=== PATIENT | female | born 1945 | race Caucasian/White ===

== ENCOUNTER 2022-03-28 14:25 | Inpatient (IN) | payer OTHER, MEDICARE ==
[~2022-03-28] VITALS: Ht 157.5 cm; Wt 65.3 kg
[2022-03-28 14:58] VITALS: BP_SYST 166
--- NOTE | 2022-03-28 14:58 | NUR ---
Patient to ER bed 3 to gown for evaluation. Side rails up. Report given to Chacha SANCHEZ.
--- NOTE | 2022-03-28 15:20 | NUR ---
ER at bedside examining patient.
[2022-03-28] MEDS ORDERED: MORPHINE 2 MG/ML INJ. SYRINGE IVP ONE (15:30)
[2022-03-28] MEDS ORDERED: NACL 0.9% 500 ML IV ONE (15:30)
[2022-03-28 16:20] LABS: BILIRUBIN,URINE NEGATIVE (NEGATIVE); BLOOD, URINE NEGATIVE (NEGATIVE); CLARITY/URINE CLEAR (CLEAR); COLOR,URINE YELLOW (YELLOW); GLUCOSE,URINE 3+ (NEGATIVE); KETONES,URINE NEGATIVE (NEGATIVE); LEUKOCYTE ESTERASE ,URINE NEGATIVE (NEGATIVE); NITRITE, URINE NEGATIVE (NEGATIVE); PH,URINE 5.5 (5.0-8.0); PROTEIN URINE NEGATIVE (NEGATIVE); UROBILINOGEN,URINE 0.2 (0.2-1.0)
[2022-03-28 16:24] LABS: BASOPHILS % (AUTO) 0.2 % (0.0-2.0); EOSINOPHILS # (AUTO) 0.1 K/uL (0.0-0.4); EOSINOPHILS % (AUTO) 1.2 % (0.0-4.0); HEMOGLOBIN 12.2 g/dL (12.0-16.0); LYMPHOCYTES % (AUTO) 16.8 % (20.5-51.5); MEAN CORPUSCULAR HEMOGLOBIN 27 pg (27-31); MEAN CORPUSCULAR HGB CONC 33 % (32-36); MEAN CORPUSCULAR VOLUME 82 fL (79.0-98.0); MONOCYTES # (AUTO) 1.4 K/uL (0.0-1.0); MONOCYTES % (AUTO) 12.3 % (1.7-9.3); NEUTROPHILS # (AUTO) 8.1 K/uL (1.8-7.7); NEUTROPHILS % (AUTO) 69.5 % (40.0-70.0); PLATELET COUNT (AUTO) 282 K/uL (130-430); RED BLOOD CELL COUNT(AUTO) 4.51 MIL/uL (4.2-6.2); RED CELL DISTRIBUTION WIDTH 13.7 % (9.0-15.0); WHITE BLOOD COUNT (AUTO) 11.7 K/uL (4.8-10.8)
[2022-03-28 16:29] LABS: ANION GAP 7 (5-15); CALCIUM 8.2 mg/dL (8.4-11.0); CHLORIDE 94 mmol/L (98-107); GLUCOSE 185 mg/dL (70-99); POTASSIUM 4.5 mmol/L (3.5-5.1); SODIUM SERUM 125 mmol/L (136-145); UREA NITROGEN, BLOOD 25 mg/dL (8-21)
[2022-03-28 16:38] LABS: ALANINE AMINOTRANSFERASE 30 U/L (12-78); ASPARTATE AMINOTRANSFERASE 24 U/L (10-37); LIPASE 81 U/L (73-393); TOTAL BILIRUBIN 0.3 mg/dL (0.0-1.0)
[2022-03-28] MEDS ORDERED: NACL 0.9% 1,000 ML IV ONE (18:00)
[2022-03-28] MEDS ORDERED: AZITHROMYCIN 500 MG in NS 250 ML IV ONE (18:15)
--- NOTE | 2022-03-28 18:27 | NUR ---
Admit bed requested Patient will be admitted to care of . Admitted to TELEMETRY unit. Diagnosis ATYPICAL PNEUMONIA AND HYPERNATREMIA Inpatient (Yes or No) YES Observation (Yes or No) NO Orientation concerns or request close to nursing station (Yes or No) NO Covid Status PENDING On vent or bipap NO Isolation requirements NO Needs a sitter NO From Home (Yes or if No enter name of facility) HOME Requires Dialysis (Yes or No) NO Med Rec Completed (Yes of No) NO
[2022-03-28] MEDS: NACL 0.9% 1,000 ML IV SCH (19:13)
[2022-03-28] MEDS ORDERED: AZITHROMYCIN 500 MG/VIAL (ZITHROMAX) IV ONE (19:14)
--- NOTE | 2022-03-28 19:28 | NUR ---
Care transferred over to Malu SANCHEZ at this time. Pt in no acute distress Aox4 GCS 15.
--- NOTE | 2022-03-28 19:35 | NUR ---
Note undone in EDM - 03/28/22 at 2128 by [email or web address] Pt aaox3, denies sob/cp/any pain, (-)facial droop/arm drift/slurred speech, resp non labored, on cm-sr 90-94, SatO2-98%. +roney to small lac to scalp, no active bleeding noted. Pt offers no complaints at present. kept comfortable. admitted for observation, awaiting for bed availability.
--- NOTE | 2022-03-28 19:38 | NUR ---
Pt aaox3, denies sob/cp/any pain at present, on cm-sr 80-90. Resp easy and non labored. IV heplock G20 to left FA connected to NS 1L and azithromycin IVPB infusing well. kept comfortable, admitted for observation, awaiting for bed availability.
--- NOTE | 2022-03-28 19:52 | NUR ---
Swabbed for COVID. Sent to lab.
--- NOTE | 2022-03-28 21:18 | NUR ---
Joy ortiz in [facility], [place] - 03/28/22 at 2128 by [email or web address] Pt in no acute distress, transported to floor w/ monitor / RN, endorsed to Eh SANCHEZ
--- NOTE | 2022-03-28 21:30 | NUR ---
A 76 years old female patient arrived inpatient from ED. Full Code. Under the care of attending Doctor Kasi Lizarraga. Chief compliant chest pain and right later lower back pain. Diagnosed with pneumonia and hyponatremia. History of Asthma, DM, COPD, and cholecystectomy (year 1997). No known allergy. Alert and Oriented x4. able to walk independently. non-smoker, skin intact. Peripheral IV guage 20 on the left forearm. Diabetic diet. List of home medication shown by the patient.
--- NOTE | 2022-03-28 21:35 | NUR ---
Pt OOB to bathrooom and back to bed, ambulatory w/ steady gait.
--- NOTE | 2022-03-28 21:50 | NUR ---
Pt in no acute distress, transported to telemetry floor w/ monitor / RN; endorsed to Edgar RN
[2022-03-28 22:33] VITALS: BP_SYST 145
--- NOTE | 2022-03-28 22:52 | NUR ---
patient stated the home meds they take: Jardiance 10mg, once a day AM Novolog PRN (sliding scale) Levemir 28u at night amlodipine 5-20mg once a day AM lexapro 10mg, once a day AM VENDOLIN HFA inhaler PRN brimonidine tartrate 20% twice a day (once in AM one in PM) both eyes latanoprost 0.005% at bedtime both eyes timolol maleate 0.5% at night both eyes
--- NOTE | 2022-03-28 23:05 | NUR ---
Called Dr Lizarraga mobile phone for medication reconciliation and admission report. No answer and directed me to a voicemail however the Doctor's voicemail is full. Will endorse to morning shift.
[2022-03-29 04:00] VITALS: BP_SYST 140
--- NOTE | 2022-03-29 04:15 | NUR ---
Medication Reconciliation Patient seen by Dr Car, reviewed home medications list. Doctor entered the medication orders
--- NOTE | 2022-03-29 04:24 | NUR ---
Consultation Paged Reason for consult: pneumonia Was consult called: Y Person who was notified: Karolina Consulting Physician: Dr. Melendez Ordering Physician: Dr. Lizarraga
--- NOTE | 2022-03-29 04:50 | NUR ---
Consultation Paged Reason for consult: pneumonia Was consult called: Y Person who was notified: Kendrick Wilson saw the pt. Consulting Physician: Kendrick Wilson Ordering Physician: Dr. Lizarraga
[2022-03-29 07:05] LABS: BASOPHILS % (AUTO) 0.3 % (0.0-2.0); EOSINOPHILS % (AUTO) 0.3 % (0.0-4.0); HEMATOCRIT 34.2 % (36-48); HEMOGLOBIN 11.2 g/dL (12.0-16.0); LYMPHOCYTES # (AUTO) 1.3 K/uL (1.0-5.5); LYMPHOCYTES % (AUTO) 13.3 % (20.5-51.5); MEAN CORPUSCULAR HEMOGLOBIN 27 pg (27-31); MEAN CORPUSCULAR HGB CONC 33 % (32-36); MEAN CORPUSCULAR VOLUME 82 fL (79.0-98.0); MONOCYTES # (AUTO) 0.8 K/uL (0.0-1.0); MONOCYTES % (AUTO) 8.5 % (1.7-9.3); NEUTROPHILS # (AUTO) 7.4 K/uL (1.8-7.7); NEUTROPHILS % (AUTO) 77.6 % (40.0-70.0); PLATELET COUNT (AUTO) 271 K/uL (130-430); RED BLOOD CELL COUNT(AUTO) 4.17 MIL/uL (4.2-6.2); RED CELL DISTRIBUTION WIDTH 14.1 % (9.0-15.0); WHITE BLOOD COUNT (AUTO) 9.5 K/uL (4.8-10.8)
--- NOTE | 2022-03-29 07:15 | NUR ---
OPENING NOTE Patient resting in bed with eyes closed. IV is patent and running prescribed fluids. No sign of distress or pain at this time. All needs met and safety checks made. Will continue to monitor.
[2022-03-29 07:42] LABS: ANION GAP 6 (5-15); CALCIUM 7.9 mg/dL (8.4-11.0); CHLORIDE 102 mmol/L (98-107); CREATININE 0.77 mg/dL (0.55-1.30); GLUCOSE 150 mg/dL (70-99); POTASSIUM 4.6 mmol/L (3.5-5.1); SODIUM SERUM 130 mmol/L (136-145); UREA NITROGEN, BLOOD 15 mg/dL (8-21)
[2022-03-29 07:52] LABS: ALANINE AMINOTRANSFERASE 22 U/L (12-78); ALBUMIN 2.5 g/dL (3.4-4.8); ASPARTATE AMINOTRANSFERASE 16 U/L (10-37); TOTAL BILIRUBIN 0.2 mg/dL (0.0-1.0)
[2022-03-29 08:00] VITALS: BP_SYST 160
[2022-03-29] MEDS: CITALOPRAM HYDROBROMIDE 20 MG TABLET PO SCH (08:19)
[2022-03-29] MEDS: lisinopriL 5 MG TABLET PO SCH (08:19)
[2022-03-29] MEDS: amLODIPine BESYLATE 5 MG TABLET PO SCH (08:20)
[2022-03-29] MEDS: cefTRIAXone 1 GM in D5W 50 ML IV SCH (08:55)
[2022-03-29] MEDS: AZITHROMYCIN 500 MG in NS 250 ML IV SCH (08:56)
[2022-03-29] MEDS ORDERED: ESCITALOPRAM OXALATE 10 MG TABLET PO SCH (09:00)
--- NOTE | 2022-03-29 10:45 | NUR ---
SPOKE TO DR LIZARRAGA Spoke to Dr Lizarraga, informed him of the patient's pain 5/10 on her back and radiating to her stomach. New orders received.
[2022-03-29] MEDS: ACETAMINOPHEN 500 MG TABLET PO PRN ×2 (10:57→19:53)
[2022-03-29] MEDS: BRIMONIDINE TARTRATE 0.2% 5 mL EYE DROPS OP SCH ×2 (10:57→20:32)
[2022-03-29 12:00] VITALS: BP_SYST 126; BP_SYST 150
[2022-03-29] MEDS ORDERED: TIMOLOL MALEATE 0.5% OPHTHALMIC DROPS 5 ML OP ONE (12:00)
--- NOTE | 2022-03-29 12:30 | NUR ---
ROUNDS Patient sitting up in bed eating lunch. AxO x4, able to ambulate to the restroom with steady gait. Patient complains of pain on the right flank radiating to her back. Patient received tylenol and states that it helped but did not take away the pain completely. All needs met at this time and safety checks made. Will continue to monitor.
--- NOTE | 2022-03-29 16:00 | NUR ---
ROUNDS Patient in bed sleeping, no sign of pain or distress. IV is patent and running prescribed fluids. All needs met at this time, and safety checks made. Will continue to monitor.
[2022-03-29 16:49] VITALS: BP_SYST 152
[2022-03-29] MEDS: NACL 0.9% 1,000 ML IV SCH (18:10)
--- NOTE | 2022-03-29 18:37 | NUR ---
CLOSING NOTE Patient sitting up in bed eating breakfast. No sign of respiratory distress and states that her pain is manageable at this time. IV is clean, dry, intact, and patent running prescribed fluids. All needs met at this time and safety checks made. Will endorse to mold shifter nurse.
[2022-03-29 19:30] VITALS: BP_SYST 157
--- NOTE | 2022-03-29 19:30 | NUR ---
OPENING NURSING NOTES PM SHIFT HAND-OFF REPORT RECEIVED FROM RUI ABDI. ENDORSED TO VERIFY ACCU CHECKS ORDERED. PT RECEIVED AWAKE IN BED WITH STATED RETURN OF LEFT FLANK PLAN THAT RADIATES TO ABD AND CHEST AND LEFTE SHOULDER. PLAN OF CARE FOR THIS EVENING TO MED WITH PRN PAIN MED PERHAPS OBTAINING SOMETHING STRONGER TO ASSIST IN PAIN MANAGEMENT. VERIFY ACCU CHECKS. SAFETY MEASURES IN EFFECT WITH CALL LIGHT WITHIN EASY REACH, BED IN LOWEST POSITION AND WHEELS LOCKED. NOTED SODIUM FROM 125 TO 130. CONT. TO MONITOR AND ASSIST NEEDED.
[2022-03-29 20:00] VITALS: BP_SYST 157
--- NOTE | 2022-03-29 20:06 | NUR ---
C/o pain left flank radiating to left abdomen and shoulder 06/01. Medicated with Tylenol 500 mg. VS 99.1-84-16-157/70 94% on RA. No respiratory distress. Up to BRP and back to bed. Discussed with pain possibility of stronger pain med. Stated will not wait so long instead. Continue to monitor effectiveness of pain med.
[2022-03-29] MEDS: INSULIN GLARGINE 100 UNITS/ML 10 ML VIAL SUBCUT SCH (20:28)
[2022-03-29] MEDS: LATANOPROST 2.5 ML DROPS (XALATAN) OP SCH (20:31)
[2022-03-29] MEDS ORDERED: TIMOLOL MALEATE 0.5% OPHTHALMIC DROPS 5 ML OP SCH (21:00)
--- NOTE | 2022-03-29 21:38 | NUR ---
Pt stated passed a little gas. Pain continues with little relief. Will phone MD for "something stronger".
--- NOTE | 2022-03-29 21:45 | NUR ---
Dr. Lizarraga notified of pt pain unrelieved with Tylenol 500 mg. po. Telephone order received for Morphine 1mg IV PRN q4h for pain.
[2022-03-29] MEDS ORDERED: NALOXONE HCL 0.4 MG/ML AMP (NARCAN) IVP PRN (22:00)
[2022-03-29] MEDS ORDERED: MORPHINE 2 MG/ML INJ. SYRINGE ONE (22:02)
[2022-03-29] MEDS: MORPHINE 2 MG/ML INJ. SYRINGE IVP PRN (22:17)
--- NOTE | 2022-03-30 | NUR ---
PT SLEEPING. MORPHINE EFFECTIVE IN PROVIDING RELIEF. CONT. TO MONITOR.
--- NOTE | 2022-03-30 02:00 | NUR ---
PT OBSERVED CONTINUING TO REST. DID NOT AWAKEN.
[2022-03-30 04:56] VITALS: BP_SYST 170
[2022-03-30] MEDS: MORPHINE 2 MG/ML INJ. SYRINGE IVP PRN ×3 (04:56→18:58)
--- NOTE | 2022-03-30 05:15 | NUR ---
BLOOD SUGAR 146.
--- NOTE | 2022-03-30 07:15 | NUR ---
CLOSING NURSING NOTES PM SHIFT HAND-OFF REPORT TO RUI ABDI. PT SLEEPING SOUNDLY WITH MOUTH OPEN. MORPHINE EFFECTIVE IN RELIEVING RIGHT FLANK PAIN. ENDORSED TO A.M. NURSE ORDER NEEDED FOR ACCU-CHECK SCHEDULE WITH A.M. ACCU-CHECK 146. SAFETY MEASURES REMAIN INTACT WITH CALL LIGHT WITHIN EASY EASY REACH AND BED IN LOWEST POSITION AND WHEELS LOCKED.
--- NOTE | 2022-03-30 07:30 | NUR ---
OPENING NOTE Patient is sitting up in bed, alert and oriented x4. States that she has pain but its manageable at this time. Pain is on her right flank. Patient shows no sign of distress and has an oxygen saturation of 98% on room air. IV is patent and running prescribed fluids. All needs met at this time and safety checks made. Will continue to monitor.
[2022-03-30 08:00] VITALS: BP_SYST 166
[2022-03-30] MEDS ORDERED: cloNIDine HCL 0.1 MG TABLET PO PRN (08:15)
[2022-03-30] MEDS: lisinopriL 5 MG TABLET PO SCH (08:35)
[2022-03-30] MEDS: amLODIPine BESYLATE 5 MG TABLET PO SCH (08:35)
[2022-03-30] MEDS: CITALOPRAM HYDROBROMIDE 20 MG TABLET PO SCH (08:35)
[2022-03-30] MEDS: TIMOLOL MALEATE 0.5% OPHTHALMIC DROPS 5 ML OP SCH (08:36)
[2022-03-30] MEDS: BRIMONIDINE TARTRATE 0.2% 5 mL EYE DROPS OP SCH ×2 (08:36→21:53)
[2022-03-30] MEDS: cefTRIAXone 1 GM in D5W 50 ML IV SCH (09:32)
[2022-03-30] MEDS: AZITHROMYCIN 500 MG in NS 250 ML IV SCH (11:12)
[2022-03-30] MEDS: NACL 0.9% 1,000 ML IV SCH (11:13)
[2022-03-30 12:21] VITALS: BP_SYST 160
[2022-03-30] MEDS ORDERED: INSULIN ASPART 100 UNITS/ML, 10 ML VIAL (NovoLOG) SUBCUT PRN (13:00)
--- NOTE | 2022-03-30 13:01 | NUR ---
NEW IV STARTED Previous IV infiltrated, removed and intact. 20g IV placed on the left forearm. Patient tolerated well.
--- NOTE | 2022-03-30 15:00 | NUR ---
ROUNDS Patient resting in bed, no sign of distress. Patient complains of a constant pain on her right side that worsens with movement. Patient able to ambulate to the restroom with steady gait. IV is clean, dry, intact and patent running prescribed fluids. All needs met at this time and safety checks made. Will continue to monitor.
--- NOTE | 2022-03-30 15:28 | NUR ---
PULMO CONSULT CALLED AGAIN TO DR VERDE (CALLED ON 03/28/22, BUT NEVER CAME), RE: PNA. SPOKE TO LAMINE.
[2022-03-30 16:20] VITALS: BP_SYST 164
[2022-03-30] MEDS: INSULIN LISPRO SLIDING SCALE 100 UNITS/ML VIAL (humaLOG) SUBCUT PRN ×2 (17:30→21:59)
--- NOTE | 2022-03-30 18:06 | NUR ---
Covered patient care throughout shift. patient had pain early in the shift and medication was given which helped patient feel better. IV treatments completed and antibiotics given without sign/sx of causing patient distress. Patient recieved complete care under BAND EDGER and patient indicated that she has no current needs at end of shift.
[2022-03-30] MEDS ORDERED: IPRATROPIUM/ALBUTEROL SULFATE 3 ML AMPUL.NEB (DUONEB) INH PRN (18:15)
--- NOTE | 2022-03-30 18:44 | NUR ---
CLOSING NOTE Patient sitting up in bed, no sign of distress. Patient complains of pain on her right side, PRN medication to be given. Patient has been able to ambulate to the restroom with steady gait. She states that she feels winded if she walks too far or talks for too long. IV is intact and running prescribed fluids. All needs met at this time and safety checks made. Will endorse to hotel night auditor nurse.
[2022-03-30 20:00] VITALS: BP_SYST 178
--- NOTE | 2022-03-30 20:00 | NUR ---
PM OPENING NURSING NOTES HAND-OFF REPORT RECEIVED FROM RUI ABDI. REPORTED PULMO CONSULT FRANKANI ROUNDED WITH ORDERS GIVEN FOR BREATHING TREATMENTS, CHEST XRAY ORDERED FOR SHLOMO AND NEW IV TO LFA. PT RECEIVED AOX4.
[2022-03-30] MEDS: LATANOPROST 2.5 ML DROPS (XALATAN) OP SCH (21:54)
[2022-03-30] MEDS: INSULIN GLARGINE 100 UNITS/ML 10 ML VIAL SUBCUT SCH (21:57)
--- NOTE | 2022-03-30 23:30 | NUR ---
NOTIFIED BY RT. PT DE-SAT 87% ON RA. O2 3L/NC APPLIED. REQUESTING NURSE OBTAIN ORDER FROM DEE DEE O2.
--- NOTE | 2022-03-30 23:39 | NUR ---
CALLED DR VERDE EXCHANGE CONCERNING DESAT 87% RESPIRATORY THERAPY WOULD LIKE AN ORDER FOR 02. PLACED PT ON O2 3L/NC PRESENTLY. STANDING BY FOR RETURN CALL.
[2022-03-31] VITALS (7 sets, daily range): BP systolic 139–164
[2022-03-31] MEDS: MORPHINE 2 MG/ML INJ. SYRINGE IVP PRN ×3 (00:58→21:40)
[2022-03-31] MEDS: IPRATROPIUM/ALBUTEROL SULFATE 3 ML AMPUL.NEB (DUONEB) INH SCH ×4 (01:59→23:30)
--- NOTE | 2022-03-31 02:00 | NUR ---
PT. SLEEPING WELL AFTER MEDICATED WITH MORPHINE. EFFECTIVE. SLEEP RESULTING. O2 3L/NC. 96% O2 SAT. SAFETY MEASURES REMAIN INTACT. BED IN LOWEST POSITION AND WHEELS LOCKED. CALL LIGHT WITHIN EASY REACH.
--- NOTE | 2022-03-31 07:30 | NUR ---
BLOOD SUGAR 93. PT STATED DESIRE MEETING FACE TO FACE WITH DIETARY BECAUSE MANY UNWANTED CARBS ON EACH MEAL TRAY. PT USE TO EATING WITHIN GUIDELINES FOR DIABETIC DIET. KITCHEN CONTACTED AND MESSAGE GIVEN. STATED THEY WILL MEET WITH PT AT SOMETIME TODAY TO SET THIS MATTER STRAIGHT. RELAYED MESSAGE TO PT. PT STATED FEELS RESTED THIS A.M. AFTER GOOD NIGHTS SLEEP. OFFERS NO C/O OF PAIN CURRENTLY. HANDOFF REPORT TO JONI SANCHEZ. RELINQUISHED CARE OF PT AT THIS TIME.
[2022-03-31] MEDS: NACL 0.9% 1,000 ML IV SCH ×2 (07:50→21:51)
--- NOTE | 2022-03-31 08:00 | NUR ---
NOTES PATIENT AAOX 4. VITALS SIGNS STABLE. AFEBRILE. LUNGS BILATERALLY DIMINISHED AT THE BASES. ABDOMEN SOFT AND NON DISTENDED. HAS IV ACCESS ON THE LEFT FOREARM #20. SALINE LOCKED. WILL CONTINUE TO MONITOR PATIENTS STATUS.
[2022-03-31] MEDS: CITALOPRAM HYDROBROMIDE 20 MG TABLET PO SCH (08:30)
[2022-03-31] MEDS: lisinopriL 5 MG TABLET PO SCH (08:33)
[2022-03-31] MEDS: amLODIPine BESYLATE 5 MG TABLET PO SCH (08:34)
[2022-03-31] MEDS: AZITHROMYCIN 500 MG in NS 250 ML IV SCH (08:35)
[2022-03-31] MEDS: cefTRIAXone 1 GM in D5W 50 ML IV SCH (08:36)
[2022-03-31] MEDS: BRIMONIDINE TARTRATE 0.2% 5 mL EYE DROPS OP SCH ×2 (08:53→21:28)
[2022-03-31] MEDS: TIMOLOL MALEATE 0.5% OPHTHALMIC DROPS 5 ML OP SCH (08:54)
--- NOTE | 2022-03-31 09:30 | NUR ---
DUE MEDS GIVEN. MADE COMFORTABLE.
[2022-03-31] MEDS: INSULIN LISPRO SLIDING SCALE 100 UNITS/ML VIAL (humaLOG) SUBCUT PRN ×3 (12:45→21:33)
--- NOTE | 2022-03-31 13:40 | NUR ---
DR MALIK CALLED FOR CTA CHEST WITH AND WITHOUT CONTRAST. INFORMED HIM THAT WAS DONE ON 03-28-22. INCLUDING THE RESULTS. SAID NO MORE.
--- NOTE | 2022-03-31 13:44 | NUR ---
LATEST BS 159 MG/DL. COVERAGE GIVEN.
[2022-03-31 14:21] LABS: ANION GAP 1 (5-15); CALCIUM 7.9 mg/dL (8.4-11.0); CHLORIDE 101 mmol/L (98-107); CREATININE 0.76 mg/dL (0.55-1.30); GLUCOSE 164 mg/dL (70-99); POTASSIUM 4.1 mmol/L (3.5-5.1); SODIUM SERUM 131 mmol/L (136-145); UREA NITROGEN, BLOOD 9 mg/dL (8-21)
--- NOTE | 2022-03-31 16:26 | NUR ---
RESTING AT THIS TIME. NO DISTRESS NOR PAIN NOTED.
--- NOTE | 2022-03-31 19:15 | NUR ---
OPENING PM NURSING NOTES HANDOFF REPORT RECEIVED FROM JONI SANCHEZ. REPORTED: CT OF CHEST ORDERED AND CANCELLED /ALREADY DONE; PT CONCERNED ABOUT PERSISTANT R FLANK PAIN INTENSITY "STILL SORE". PT STATED WILL TRY MORPHINE ONE MORE TIME AND THEN SWITCH BACK TYLENOL ES "BECAUSE I THINK I'M GETTING AHEAD OF THE PAIN NOW;DIETARY NEVER CAME TO TALK WITH ME...STILL GETTING MANY CARBS AND MILK; ACCUCHEKS 159, AND 153 TODAY. OBSERVED PT IN NO APPARENT DISTRESS. NO WHEEZING WITH O2 @ 3L/NC WILL RESTING IN BED. "I FEEL MUCH STRONGER GETTING ILN AND OUT OF BED WITH O2 NOW...I CAN TELL THE DIFFERENCE." TELE CONT SR. MONITOR AND COMFORT MEASURES. SAFETY PRECAUTIONS WITH BED IN LOWEST POSITION AND WHEELS LOCKED. CALL LIGHT WITHIN EASY REACH.
[2022-03-31] MEDS: LATANOPROST 2.5 ML DROPS (XALATAN) OP SCH (21:29)
[2022-03-31] MEDS: INSULIN GLARGINE 100 UNITS/ML 10 ML VIAL SUBCUT SCH (21:36)
[2022-04-01] MEDS: IPRATROPIUM/ALBUTEROL SULFATE 3 ML AMPUL.NEB (DUONEB) INH SCH ×4 (01:31→20:09)
[2022-04-01 08:07] VITALS: BP_SYST 151
[2022-04-01 08:28] VITALS: BP_SYST 99
[2022-04-01] MEDS: cefTRIAXone 1 GM in D5W 50 ML IV SCH (09:43)
[2022-04-01] MEDS: BRIMONIDINE TARTRATE 0.2% 5 mL EYE DROPS OP SCH ×2 (09:44→23:09)
[2022-04-01] MEDS: TIMOLOL MALEATE 0.5% OPHTHALMIC DROPS 5 ML OP SCH (09:44)
[2022-04-01] MEDS: amLODIPine BESYLATE 5 MG TABLET PO SCH (09:45)
[2022-04-01] MEDS: CITALOPRAM HYDROBROMIDE 20 MG TABLET PO SCH (09:45)
[2022-04-01] MEDS: IBUPROFEN 400 MG TABLET PO PRN (09:46)
[2022-04-01] MEDS: lisinopriL 5 MG TABLET PO SCH (09:46)
[2022-04-01] MEDS: AZITHROMYCIN 500 MG in NS 250 ML IV SCH (10:55)
[2022-04-01 11:22] VITALS: BP_SYST 141
[2022-04-01 16:11] VITALS: BP_SYST 134
[2022-04-01 16:51] LABS: BILIRUBIN,URINE NEGATIVE (NEGATIVE); BLOOD, URINE NEGATIVE (NEGATIVE); CLARITY/URINE CLEAR (CLEAR); COLOR,URINE YELLOW (YELLOW); GLUCOSE,URINE NEGATIVE (NEGATIVE); KETONES,URINE NEGATIVE (NEGATIVE); LEUKOCYTE ESTERASE ,URINE NEGATIVE (NEGATIVE); NITRITE, URINE NEGATIVE (NEGATIVE); PROTEIN URINE NEGATIVE (NEGATIVE); UROBILINOGEN,URINE 0.2 (0.2-1.0)
--- NOTE | 2022-04-01 19:15 | NUR ---
PM SHIFT OPENING NURSING NOTES HAND-FF REPORT RECEIVED FROM ISIDRA SANCHEZ. REPORTED: UA SENT. IV INFILTRATED TO RFA. PENDING RESTART; MEDICATED FOR HEADACHE WITH EFFECTIVE RELIEF; DRY COUGH PERSIST; BMX1; DID NOT FOLLOW-UP WITH DIETARY CONSULT; INCENTIVE SPIROMETER HOURLY 10X WHILE AWAKE. BEDSIDE ROUNDS OBSERVED PT IN NO DISTRESS. REQUEST SLEEPER FOR TONIGHT. WILL PHONE MD FOR ORDER. CONTINUE TO MONITOR AND ASSIST AND PROVIDE COMFORT MEASURES. SAFETY PRECAUTIONS WITH BED IN LOWEST POSITION AND WHEELS LOCKED. CALL LIGHT WITHIN EASY REACH.
[2022-04-01 20:00] VITALS: BP_SYST 150
--- NOTE | 2022-04-01 20:38 | NUR ---
PHONED HELENA PER PT REQUEST FOR "SLEEPER". RECEIVED NEW ORDER FOR RESTORIL 15 MG PO HS PRN FOR SLEEPLESSNESS.
[2022-04-01] MEDS ORDERED: TEMAZEPAM 15 MG CAPSULE PO PRN (20:45)
[2022-04-01] MEDS: NACL 0.9% 1,000 ML IV SCH (22:30)
[2022-04-01] MEDS: LATANOPROST 2.5 ML DROPS (XALATAN) OP SCH (23:10)
[2022-04-01] MEDS: INSULIN GLARGINE 100 UNITS/ML 10 ML VIAL SUBCUT SCH (23:18)
[2022-04-01] MEDS: INSULIN LISPRO SLIDING SCALE 100 UNITS/ML VIAL (humaLOG) SUBCUT PRN (23:20)
[2022-04-02 01:03] VITALS: BP_SYST 133
[2022-04-02] MEDS: IPRATROPIUM/ALBUTEROL SULFATE 3 ML AMPUL.NEB (DUONEB) INH SCH ×3 (01:25→13:34)
--- NOTE | 2022-04-02 06:30 | NUR ---
ATTEMPT TO RESTART IV RFA X1 UNSUCCESSFUL.
--- NOTE | 2022-04-02 07:00 | NUR ---
PM SHIFT CLOSING NURSING NOTES: PM CHARGE NURSE SUCCESSFULLY RESTARTED IV TO LFA 22 GA. ONE STICK. NS 50 ML/H. CONTINUOUS IV FLUIDS RESTARTED. PT SHONA. WELL. SITTING UP IN BE EATING BREAKFAST. HAND-OFF REPORT TO JERARDO SANCHEZ. REPORTED: PT REQUESTING DIETARY CONSULT MEDICATED X1 FOR HEADACHE @ 0707 WITH IBUPROFEN 1 TAB; CONT INCENTIVE SPIROMETER Q1HX10 WHILE; UA SENT ON PRIOR SHIFT; PT CONTINUES TO REQUEST DIETARY CONSULT FOR FOOD TRAY TO REFLECT [facility] DIET COMPLIANCE. RELINQUISHED CARE OF PT AT THIS TIME.
[2022-04-02] MEDS: IBUPROFEN 400 MG TABLET PO PRN (07:07)
[2022-04-02 07:58] LABS: ANION GAP 3 (5-15); CALCIUM 7.8 mg/dL (8.4-11.0); CHLORIDE 102 mmol/L (98-107); CREATININE 0.66 mg/dL (0.55-1.30); GLUCOSE 82 mg/dL (70-99); POTASSIUM 4.2 mmol/L (3.5-5.1); SODIUM SERUM 135 mmol/L (136-145); UREA NITROGEN, BLOOD 10 mg/dL (8-21)
--- NOTE | 2022-04-02 08:00 | NUR ---
miss Munoz has been assessed as indicated she has been noted to be both pleasant and cooperative. She continues to deny pain and ambulates about the room with no assistance. She is presently resting quietly and will continue to be monitored for any s/s of distress or discomfort
[2022-04-02 08:10] VITALS: BP_SYST 133
[2022-04-02 08:15] LABS: BASOPHILS % (AUTO) 0.5 % (0.0-2.0); EOSINOPHILS # (AUTO) 0.3 K/uL (0.0-0.4); EOSINOPHILS % (AUTO) 3.7 % (0.0-4.0); HEMATOCRIT 34.1 % (36-48); HEMOGLOBIN 11.1 g/dL (12.0-16.0); LYMPHOCYTES # (AUTO) 2.1 K/uL (1.0-5.5); LYMPHOCYTES % (AUTO) 26.7 % (20.5-51.5); MEAN CORPUSCULAR HEMOGLOBIN 27 pg (27-31); MEAN CORPUSCULAR HGB CONC 33 % (32-36); MEAN CORPUSCULAR VOLUME 82 fL (79.0-98.0); MONOCYTES # (AUTO) 0.9 K/uL (0.0-1.0); MONOCYTES % (AUTO) 11.4 % (1.7-9.3); NEUTROPHILS # (AUTO) 4.4 K/uL (1.8-7.7); NEUTROPHILS % (AUTO) 57.7 % (40.0-70.0); PLATELET COUNT (AUTO) 325 K/uL (130-430); RED BLOOD CELL COUNT(AUTO) 4.15 MIL/uL (4.2-6.2); RED CELL DISTRIBUTION WIDTH 13.8 % (9.0-15.0); WHITE BLOOD COUNT (AUTO) 7.7 K/uL (4.8-10.8)
[2022-04-02] MEDS: LATANOPROST 2.5 ML DROPS (XALATAN) OP SCH (09:37)
[2022-04-02] MEDS: BRIMONIDINE TARTRATE 0.2% 5 mL EYE DROPS OP SCH (09:37)
[2022-04-02] MEDS: cefTRIAXone 1 GM in D5W 50 ML IV SCH (09:38)
[2022-04-02] MEDS: TIMOLOL MALEATE 0.5% OPHTHALMIC DROPS 5 ML OP SCH (09:39)
[2022-04-02] MEDS: lisinopriL 5 MG TABLET PO SCH (09:40)
[2022-04-02] MEDS: CITALOPRAM HYDROBROMIDE 20 MG TABLET PO SCH (09:41)
[2022-04-02] MEDS: amLODIPine BESYLATE 5 MG TABLET PO SCH (09:41)
--- NOTE | 2022-04-02 11:16 | NUR ---
Per PT, Miss Munoz was able to ambulate on room air with a pulse ox of 93%. She is at rest now with room air and oulse ox is within normal limits
--- NOTE | 2022-04-02 11:59 | NUR ---
DISCHARGE PLANNING Called & spoke with Dr Lizarraga, regarding dc planning if ready for dc home. Pt desi room air this am. States will be in to examine pt & determine dc plan. Addendum: 04/02/22 at 1546 by Xochitl Aleman RN Called & spoke with Dr Lizarraga regarding dc plan, states came in to hospital & pt stable for dc home. Gave ph order to dc home & to f/u with him this April 04. Placed telephone order.
[2022-04-02 12:14] VITALS: BP_SYST 135
[2022-04-02 16:22] VITALS: BP_SYST 136
[2022-04-02 16:30] VITALS: BP_SYST 136
--- NOTE | 2022-04-02 18:05 | NUR ---
Miss Munoz has been DC to home. She was picked up by her sister. She was transported via private vehicle. IV access was removed heart monitor was removed. At the time of DC she had no s/s of distress or discomfort. DC instructions were reviewed and she expressed that she understood the directions. She signed a document to indicate this. She was provided an office number an address for the admitting physician as well as the artificial breeding distributor. She was informed that dr Lizarraga sent her RX information to the pharmacy of her choice.
== END 2022-04-02 18:05 | disposition home or self-care (01) | DRG 871 ==
LOC: SED 14:25 → STU 18:20
PROVIDERS: ADMIT Internal Medicine; ATTEND Internal Medicine
DX: A41.9 Sepsis, unspecified organism (principal); J18.9 Pneumonia, unspecified organism; E87.1 Hypo-osmolality and hyponatremia; J44.0 Chronic obstructive pulmonary disease with (acute) lower respiratory infection; E11.9 Type 2 diabetes mellitus without complications; Z77.22 Contact with and (suspected) exposure to environmental tobacco smoke (acute) (chronic); Z20.822 Contact with and (suspected) exposure to COVID-19; R93.2 Abnormal findings on diagnostic imaging of liver and biliary tract; Z90.49 Acquired absence of other specified parts of digestive tract
CPT/HCPCS: 36415; 71045; 71275; 76376; 80048; 80053; 81003; 82962; 83690; 83880; 84484; 85025; 85379; 93005; 94640; 94760; 96361; 96374; 96375; 99285; G0378; J0456; J0696; J2270; J7040; J7050; J7060; Q9967